=== PATIENT | male | born 1960 | race Two or more races ===

== ENCOUNTER 2020-04-04 13:10 | Emergency (ER) | payer MEDICAID ==
[~2020-04-04] VITALS: Ht 165.1 cm; Wt 70.5 kg
[2020-04-04] MEDS ORDERED: ACETAMINOPHEN 500 MG TABLET ONE (13:46)
--- NOTE | 2020-04-04 14:02 | NUR ---
PT PLACED ON ALL ROOM MONITORING. PT DENIES COUGH, CONGESTION, SORE THROAT. PER [facility], PT RECENTLY SEEN AND BEING TREATED FOR TOOTH INFECTION. TYLENOL GIVEN PER PROTOCOL FOR FEVER. IV PLACED D/T FEVER AND TACHYCARDIA. LABS DRAWN WITH START INCLUDING BC X 1. NS BOLUS STARTED. PT STATES HE TAKES BLOOD SUGARS DAILY WITH THIS AM READ IN 200S. PT TAKES INSULIN AT HOME, DENIES DKA HX. CALL LIGHT WITHIN REACH.
[2020-04-04] MEDS ORDERED: ACETAMINOPHEN 500 MG TABLET PO ONE (14:30)
[2020-04-04] MEDS ORDERED: SODIUM CHLORIDE 0.9% 1,000ML IVBOLUS ONE ×2 (15:30→17:00)
[2020-04-04] MEDS ORDERED: SODIUM CHLORIDE FLUSH 10ML SYR IVF ONE (15:30)
[2020-04-04 15:31] LABS: BASOPHILS # (AUTO) 0.02 x10^3/uL (0-0.1); BASOPHILS % (AUTO) 0 % (0-1); EOSINOPHILS # (AUTO) 0.07 x10^3/uL (0-0.4); EOSINOPHILS % (AUTO) 1 % (1-7); LYMPHOCYTES # (AUTO) 0.88 x10^3/uL (1-3.4); LYMPHOCYTES % (AUTO) 7 % (22-44); MD NO; MEAN CORPUSCULAR HEMOGLOBIN 30.5 pg (27.5-34.5); MEAN CORPUSCULAR HGB CONC 32.5 g/dL (33.2-36.2); MONOCYTES # (AUTO) 0.48 x10^3/uL (0.2-0.8); MONOCYTES % (AUTO) 4 % (2-9); NEUTROPHILS # (AUTO) 10.99 x10^3/uL (1.8-6.8); NEUTROPHILS % (AUTO) 88 % (42-75); PLATELET COUNT 164 x10^3/uL (130-400); RED BLOOD COUNT 4.96 x10^6/uL (4.38-5.82); RED CELL DISTRIBUTION WIDTH 13.5 % (9.4-14.8)
[2020-04-04 15:42] LABS: ALANINE AMINOTRANSFERASE 30 U/L (12-78); ALBUMIN 3.7 g/dL (3.4-5.0); ANION GAP 8 mmol/L (5-15); CALCIUM 9.2 mg/dL (8.5-10.1); CHLORIDE 108 mmol/L (98-107); CREATININE 1.18 mg/dL (0.7-1.3)
[2020-04-04 15:49] LABS: ALKALINE PHOSPHATASE 61 U/L (45-117); BILIRUBIN,TOTAL 0.9 mg/dL (0.2-1.0); TOTAL PROTEIN 6.7 g/dL (6.4-8.2)
--- NOTE | 2020-04-04 16:34 | NUR ---
URINE COLLECTED/SENT TO LAB. PT COMFORTABLE AT THIS TIME, NO COMPLAINTS, VSS/UPDATED IN COMPUTER. PT REQUESTING FOOD, SNACK GIVEN, ED DIET TRAY ORDERED.
[2020-04-04 16:38] LABS: MICROSCOPIC INDICATED
--- NOTE | 2020-04-04 17:11 | NUR ---
ADD ON ORDER FOR CT ABD/PELVIS. MEAL TRAY HELD PENDING CT AND READ. CALL LIGHT WITHIN REACH.
--- NOTE | 2020-04-04 17:14 | NUR ---
PT TO CT.
[2020-04-04] MEDS ORDERED: OMNIPAQUE 350 MG/ML, 100ML BOTTLE ONE (17:28)
[2020-04-04 19:16] VITALS: BP 104/70
[2020-04-05] MEDS ORDERED: INSU100C SQ-INSULIN (12:40)
[2020-04-05] MEDS ORDERED: INSU100V8 SQ (12:40)
[2020-04-05] MEDS ORDERED: AMLO10TA8 PO (12:40)
== END 2020-04-04 19:30 | disposition home or self-care (01) ==
LOC: ED 19:00
DX: R50.9 Fever, unspecified (principal); Z20.828 Contact with and (suspected) exposure to other viral communicable diseases; R10.31 Right lower quadrant pain; E11.9 Type 2 diabetes mellitus without complications; I10 Essential (primary) hypertension; R00.0 Tachycardia, unspecified
CPT/HCPCS: 36415; 71045; 74177; 80053; 81001; 83605; 83690; 84145; 85025; 87040; 87077; 87086; 87635; 93005; 99285; J7030; Q9967; 87186

== ENCOUNTER 2020-04-05 10:58 | Inpatient (IN) | payer MEDICAID ==
[~2020-04-05] VITALS: Ht 160 cm; Wt 69.0 kg
[2020-04-05] MEDS ORDERED: SODIUM CHLORIDE FLUSH 10ML SYR IVF PRN (12:00)
[2020-04-05] MEDS ORDERED: CEFTRIAXONE PMX 1GM/50ML 50 ML IV ONE (12:00)
[2020-04-05] MEDS ORDERED: SODIUM CHLORIDE FLUSH 10ML SYR IVF ONE (12:00)
[2020-04-05 12:07] LABS: BASOPHILS # (AUTO) 0.01 x10^3/uL (0-0.1); BASOPHILS % (AUTO) 0 % (0-1); EOSINOPHILS # (AUTO) 0.02 x10^3/uL (0-0.4); EOSINOPHILS % (AUTO) 0 % (1-7); LYMPHOCYTES # (AUTO) 0.39 x10^3/uL (1-3.4); LYMPHOCYTES % (AUTO) 5 % (22-44); MD NO; MEAN CORPUSCULAR HEMOGLOBIN 31.2 pg (27.5-34.5); MEAN CORPUSCULAR HGB CONC 33.3 g/dL (33.2-36.2); MEAN CORPUSCULAR VOLUME 93.7 fL (81-97); MEAN PLATELET VOLUME 8.4 fL (7.4-10.4); MONOCYTES # (AUTO) 0.25 x10^3/uL (0.2-0.8); MONOCYTES % (AUTO) 3 % (2-9); NEUTROPHILS # (AUTO) 7.09 x10^3/uL (1.8-6.8); NEUTROPHILS % (AUTO) 91 % (42-75); PLATELET COUNT 143 x10^3/uL (130-400); RED BLOOD COUNT 5.14 x10^6/uL (4.38-5.82); RED CELL DISTRIBUTION WIDTH 14.3 % (9.4-14.8)
[2020-04-05 12:08] LABS: HEMOGRAM NOTE RECHECKED
[2020-04-05 12:11] LABS: ALBUMIN 3.9 g/dL (3.4-5.0); ANION GAP 5 mmol/L (5-15); CALCIUM 9.7 mg/dL (8.5-10.1); CHLORIDE 107 mmol/L (98-107)
[2020-04-05 12:14] LABS: ALANINE AMINOTRANSFERASE 38 U/L (12-78); ALKALINE PHOSPHATASE 70 U/L (45-117); BILIRUBIN,TOTAL 0.9 mg/dL (0.2-1.0); CREATININE 1.22 mg/dL (0.7-1.3); TOTAL PROTEIN 7.5 g/dL (6.4-8.2)
[2020-04-05] MEDS ORDERED: CEFTRIAXONE PMX 1GM/50ML 50 ML ONE (12:21)
[2020-04-05] MEDS ORDERED: AMLO10TA8 PO (12:40)
[2020-04-05] MEDS ORDERED: INSU100C SQ-INSULIN (12:40)
[2020-04-05] MEDS ORDERED: INSU100V8 SQ (12:40)
[2020-04-05 14:15] VITALS: BP 151/75
[2020-04-05] MEDS: INSULIN GLARGINE 100 UNITS/ML, PEN SQ-INSULIN SCH ×2 (17:30→22:50)
[2020-04-05] MEDS: INSULIN LISPRO 100 UNITS/ML, PEN SQ-INSULIN SCH ×3 (18:00→22:50)
[2020-04-05] MEDS ORDERED: ACETAMINOPHEN 325 MG TABLET PO PRN (18:00)
[2020-04-05] MEDS ORDERED: DEXTROSE 4 GM TAB.CHEW PO PRN (18:00)
[2020-04-05] MEDS ORDERED: DEXTROSE 50%, 50ML SYRINGE IVPush PRN (18:00)
[2020-04-05] MEDS ORDERED: POLYETHYLENE GLYCOL 17 GM PACKET PO PRN (18:00)
[2020-04-05] MEDS ORDERED: GLUCAGON 1 MG IM PRN (18:00)
[2020-04-05] MEDS ORDERED: ONDANSETRON 2MG/ML, 2ML IVPush PRN (18:00)
[2020-04-05] MEDS ORDERED: BISACODYL 10 MG SUPP PR PRN (18:00)
[2020-04-05] MEDS ORDERED: DOCUSATE 100 MG CAPSULE PO PRN (18:00)
[2020-04-05] MEDS: ENOXAPARIN 40 MG/0.4 ML SQ SCH (18:37)
[2020-04-05] MEDS: SODIUM CHLORIDE 0.9% 1,000 ML IV SCH (18:37)
[2020-04-05 19:41] LABS: HCT (SEDRATE) 48.8 % (39.2-51.8)
[2020-04-05 20:09] VITALS: BP 117/68
[2020-04-05] MEDS: SODIUM CHLORIDE FLUSH 10ML SYR IVF SCH (21:00)
[2020-04-05] MEDS: AMPICILLIN/SULBACTAM 3 GM in SODIUM CHLORIDE 0.9% 100 ML IV SCH (21:49)
[2020-04-05] MEDS ORDERED: OMNIPAQUE 350 MG/ML, 100ML BOTTLE ONE (22:40)
[2020-04-06 00:43] VITALS: BP 133/84
[2020-04-06] MEDS: AMPICILLIN/SULBACTAM 3 GM in SODIUM CHLORIDE 0.9% 100 ML IV SCH ×2 (05:29→13:53)
[2020-04-06] MEDS: SODIUM CHLORIDE 0.9% 1,000 ML IV SCH (05:29)
[2020-04-06 06:20] LABS: BASOPHILS # (AUTO) 0.03 x10^3/uL (0-0.1); BASOPHILS % (AUTO) 0 % (0-1); EOSINOPHILS # (AUTO) 0.02 x10^3/uL (0-0.4); EOSINOPHILS % (AUTO) 0 % (1-7); LYMPHOCYTES # (AUTO) 0.92 x10^3/uL (1-3.4); LYMPHOCYTES % (AUTO) 13 % (22-44); MD NO; MEAN CORPUSCULAR HEMOGLOBIN 31.3 pg (27.5-34.5); MEAN CORPUSCULAR HGB CONC 33.2 g/dL (33.2-36.2); MEAN CORPUSCULAR VOLUME 94.3 fL (81-97); MEAN PLATELET VOLUME 8.3 fL (7.4-10.4); MONOCYTES # (AUTO) 0.61 x10^3/uL (0.2-0.8); MONOCYTES % (AUTO) 8 % (2-9); NEUTROPHILS # (AUTO) 5.76 x10^3/uL (1.8-6.8); NEUTROPHILS % (AUTO) 78 % (42-75); PLATELET COUNT 130 x10^3/uL (130-400); RED BLOOD COUNT 4.78 x10^6/uL (4.38-5.82); RED CELL DISTRIBUTION WIDTH 13.8 % (9.4-14.8)
[2020-04-06 06:31] LABS: CHLORIDE 102 mmol/L (98-107)
[2020-04-06 06:48] LABS: ALANINE AMINOTRANSFERASE 40 U/L (12-78); ALKALINE PHOSPHATASE 64 U/L (45-117); ANION GAP 10 mmol/L (5-15); BILIRUBIN,TOTAL 0.5 mg/dL (0.2-1.0); CALCIUM 8.2 mg/dL (8.5-10.1); CREATININE 1.22 mg/dL (0.7-1.3); TOTAL PROTEIN 6.9 g/dL (6.4-8.2)
[2020-04-06] MEDS: INSULIN LISPRO 100 UNITS/ML, PEN SQ-INSULIN SCH ×6 (07:00→20:25)
[2020-04-06 08:05] VITALS: BP 139/86
[2020-04-06] MEDS: AMLODIPINE 10 MG TAB PO SCH (08:34)
[2020-04-06] MEDS: SODIUM CHLORIDE FLUSH 10ML SYR IVF SCH ×2 (08:35→20:25)
[2020-04-06 14:33] VITALS: BP 157/96
[2020-04-06] MEDS: ENOXAPARIN 40 MG/0.4 ML SQ SCH (16:51)
[2020-04-06 19:48] VITALS: BP 128/79
[2020-04-06] MEDS: INSULIN GLARGINE 100 UNITS/ML, PEN SQ-INSULIN SCH (20:24)
[2020-04-06] MEDS: CEFTRIAXONE PMX 2GM/50ML 50 ML IV SCH (20:24)
[2020-04-07 00:05] VITALS: BP 135/91
[2020-04-07 05:56] LABS: CHLORIDE 105 mmol/L (98-107)
[2020-04-07 06:05] LABS: BASOPHILS # (AUTO) 0.03 x10^3/uL (0-0.1); BASOPHILS % (AUTO) 1 % (0-1); EOSINOPHILS # (AUTO) 0.31 x10^3/uL (0-0.4); EOSINOPHILS % (AUTO) 7 % (1-7); LYMPHOCYTES # (AUTO) 1.16 x10^3/uL (1-3.4); LYMPHOCYTES % (AUTO) 25 % (22-44); MD NO; MEAN CORPUSCULAR HEMOGLOBIN 30.7 pg (27.5-34.5); MEAN CORPUSCULAR HGB CONC 32.2 g/dL (33.2-36.2); MEAN CORPUSCULAR VOLUME 95.2 fL (81-97); MEAN PLATELET VOLUME 8.2 fL (7.4-10.4); MONOCYTES # (AUTO) 0.68 x10^3/uL (0.2-0.8); MONOCYTES % (AUTO) 15 % (2-9); NEUTROPHILS # (AUTO) 2.44 x10^3/uL (1.8-6.8); NEUTROPHILS % (AUTO) 53 % (42-75); PLATELET COUNT 137 x10^3/uL (130-400); RED BLOOD COUNT 5.21 x10^6/uL (4.38-5.82); RED CELL DISTRIBUTION WIDTH 13.9 % (9.4-14.8)
[2020-04-07 06:09] LABS: ALANINE AMINOTRANSFERASE 44 U/L (12-78); ALKALINE PHOSPHATASE 71 U/L (45-117); ANION GAP 8 mmol/L (5-15); BILIRUBIN,TOTAL 0.4 mg/dL (0.2-1.0); CALCIUM 8.8 mg/dL (8.5-10.1); TOTAL PROTEIN 7.2 g/dL (6.4-8.2)
[2020-04-07 06:27] VITALS: BP 102/53
[2020-04-07] MEDS: INSULIN LISPRO 100 UNITS/ML, PEN SQ-INSULIN SCH ×5 (09:08→21:50)
[2020-04-07 09:10] VITALS: BP 123/84
[2020-04-07] MEDS: AMLODIPINE 10 MG TAB PO SCH (09:10)
[2020-04-07] MEDS: SODIUM CHLORIDE FLUSH 10ML SYR IVF SCH ×2 (09:10→21:49)
[2020-04-07 12:49] VITALS: BP 139/85
[2020-04-07] MEDS: ENOXAPARIN 40 MG/0.4 ML SQ SCH (16:51)
[2020-04-07] MEDS: CEFTRIAXONE PMX 2GM/50ML 50 ML IV SCH (20:08)
[2020-04-07 21:46] VITALS: BP 128/81
[2020-04-07] MEDS: INSULIN GLARGINE 100 UNITS/ML, PEN SQ-INSULIN SCH (21:50)
[2020-04-08 01:39] VITALS: BP 140/86
[2020-04-08 05:25] LABS: ANION GAP 7 mmol/L (5-15); BASOPHILS # (AUTO) 0.03 x10^3/uL (0-0.1); BASOPHILS % (AUTO) 1 % (0-1); CALCIUM 9.7 mg/dL (8.5-10.1); CHLORIDE 106 mmol/L (98-107); CREATININE 1.01 mg/dL (0.7-1.3); EOSINOPHILS # (AUTO) 0.53 x10^3/uL (0-0.4); EOSINOPHILS % (AUTO) 10 % (1-7); LYMPHOCYTES # (AUTO) 1.56 x10^3/uL (1-3.4); LYMPHOCYTES % (AUTO) 29 % (22-44); MD NO; MEAN CORPUSCULAR HEMOGLOBIN 30.6 pg (27.5-34.5); MEAN CORPUSCULAR HGB CONC 32.2 g/dL (33.2-36.2); MEAN CORPUSCULAR VOLUME 94.9 fL (81-97); MEAN PLATELET VOLUME 7.9 fL (7.4-10.4); MONOCYTES % (AUTO) 15 % (2-9); NEUTROPHILS # (AUTO) 2.49 x10^3/uL (1.8-6.8); NEUTROPHILS % (AUTO) 46 % (42-75); PLATELET COUNT 175 x10^3/uL (130-400); RED BLOOD COUNT 5.46 x10^6/uL (4.38-5.82); RED CELL DISTRIBUTION WIDTH 13.8 % (9.4-14.8)
[2020-04-08 07:03] VITALS: BP 124/82
[2020-04-08] MEDS: AMLODIPINE 10 MG TAB PO SCH (08:00)
[2020-04-08] MEDS: INSULIN LISPRO 100 UNITS/ML, PEN SQ-INSULIN SCH ×4 (08:00→20:11)
[2020-04-08] MEDS: SODIUM CHLORIDE FLUSH 10ML SYR IVF SCH ×2 (08:06→20:16)
[2020-04-08 13:03] VITALS: BP 120/84
[2020-04-08] MEDS: ENOXAPARIN 40 MG/0.4 ML SQ SCH (17:11)
[2020-04-08] MEDS: CEFTRIAXONE PMX 2GM/50ML 50 ML IV SCH (20:10)
[2020-04-08 20:19] VITALS: BP 116/83
[2020-04-08] MEDS ORDERED: INSULIN GLARGINE 100 UNITS/ML, PEN SQ-INSULIN SCH (21:00)
[2020-04-09 01:35] VITALS: BP 145/90
[2020-04-09 06:50] VITALS: BP 122/83
[2020-04-09] MEDS: INSULIN LISPRO 100 UNITS/ML, PEN SQ-INSULIN SCH ×2 (08:17→11:00)
[2020-04-09] MEDS: SODIUM CHLORIDE FLUSH 10ML SYR IVF SCH (08:17)
[2020-04-09] MEDS: AMLODIPINE 10 MG TAB PO SCH (08:17)
[2020-04-09] MEDS ORDERED: INSU100V8 SQ (09:27)
[2020-04-09] MEDS ORDERED: CEFD300C37 PO (09:27)
[2020-04-09] MEDS ORDERED: INSU100C SQ-INSULIN (09:27)
== END 2020-04-09 11:01 | disposition home or self-care (01) | DRG 872 ==
LOC: ED 11:17 → EDIP 12:15 → 3N 12:29 → DCLOUNGE 04-09 10:41
PROVIDERS: ADMIT Internal Medicine; ATTEND Internal Medicine
DX: A41.9 Sepsis, unspecified organism (principal); E87.2 Acidosis; E11.9 Type 2 diabetes mellitus without complications; K02.9 Dental caries, unspecified; K04.7 Periapical abscess without sinus; K76.0 Fatty (change of) liver, not elsewhere classified; N30.90 Cystitis, unspecified without hematuria; I10 Essential (primary) hypertension
CPT/HCPCS: 36415; 70487; 80048; 80053; 82962; 83036; 83605; 83615; 83735; 84100; 84145; 84443; 85025; 85379; 85651; 87040; 93306; 96374; 99285; G0378; J0295; J0696; J1650; Q9967; J1815; J7030